=== PATIENT | male | born 2000 | race Caucasian/White ===

== ENCOUNTER 2019-03-02 01:39 | Emergency (ER) | payer MEDICAID ==
[~2019-03-02] VITALS: Ht 170.2 cm; Wt 91.0 kg
[2019-03-02 01:41] VITALS: BP 124/67
== END 2019-03-02 03:47 | disposition left against medical advice (07) ==
LOC: ER 01:39
DX: F41.9 Anxiety disorder, unspecified (principal); Z53.21 Procedure and treatment not carried out due to patient leaving prior to being seen by health care provider